=== PATIENT | female | born 1975 | race Hispanic/Latino ===

== ENCOUNTER 2023-06-22 15:10 | Emergency (ER) | payer BC ==
[2023-06-22] MEDS ORDERED: Morphine 4 MG/ML VIAL ONE (17:18)
== END 2023-06-22 17:16 | disposition home or self-care (01) ==
LOC: CSHERS 15:10
DX: M54.50 Low back pain, unspecified (principal); F17.210 Nicotine dependence, cigarettes, uncomplicated
CPT/HCPCS: 96372; 99283; J2270